=== PATIENT | female | born 1980 | race Caucasian/White ===

== ENCOUNTER 2018-12-31 12:01 | Inpatient (IN) | payer BC ==
[2018-12-31] MEDS ORDERED: Lactated Ringers 1000 ML Bag* 1,000 ML IV ONE (13:27)
[2018-12-31] MEDS ORDERED: Buffered Lidocaine 1% SYRIN* 1 ML/SYRINGE INTRADERM ONE (13:27)
[2018-12-31] MEDS ORDERED: Oxytocin in LR* 20 UNITS/1,000 ML BAG IVPB SCH ×2 (14:00→23:00)
[2018-12-31] MEDS ORDERED: Lactated Ringers 1000 ML Bag* 1,000 ML IV SCH ×2 (14:00→23:00)
[2018-12-31 15:25] LABS: ABS Lymphocytes 2.1 10^3/ul (1.0-4.8); ABS Monocytes 0.4 10^3/ul (0-0.8); ABS Neutrophils 4.7 10^3/ul (1.5-7.7); Eosinophil % 0.3 %; Hematocrit 33 % (35-47); Hemoglobin 11.2 g/dL (12.0-16.0); Lymphocyte % 28.7 %; Mean Corpuscular HGB Conc 35 g/dL (31-36); Mean Corpuscular Hemoglobin 35 pg (27-31); Mean Corpuscular Volume 102 fL (80-97); Mean Platelet Volume 11.2 fL (7.4-10.4); Nucleated Red Blood Cells % 0.1; Platelet Count 88 10^3/uL (150-450); Red Blood Count 3.21 10^6 /uL (3.70-4.87); Red Cell Distribution Width 13 % (10-15); White Blood Count 7.2 10^3/uL (3.5-10.8)
[2018-12-31 15:44] LABS: Urine Benzodiazepine Screen None Detected (None Detect); Urine Opiates Screen None Detected (None Detect)
--- NOTE | 2018-12-31 18:02 | HP ---
General Information - Reason for Visit Pt presents for elective labor induction, . Uncomplicated except AMA and low Plt. - General Information Maternal Age: 38 Grav: 3 Para: 2 SAB: 0 IEA: 0 Estimated Due Date: 01/07/19 Determined By: LMP Gestational Age in Weeks/Days: 39+0 Maternal Blood Type and Rh: A Positive - Results this Serology/RPR Result: Non-Reactive Rubella Result: Immune HBsAg Result: Negative HIV Result: Negative GBS Culture Result: Negative Past Medical History Delivery History: Hx Uncomplicated Vaginal Delivery Pertinent Past Medical History: See Records - none Pertinent Past Surgical History: See Records - Antepartal Records Antepartal Records: Reviewed, Uncomplicated Review of Systems Constitutional: Comfortable CV Complaint: No Respiratory: Shortness of Breath: No Gastrointestinal: No Nausea/Vomiting Genitourinary: No Dysuria, No Bleeding, No Leaking Fluid Musculoskeletal: No Complaint Neurological: No Headache Movement: Normal Exam Allergies/Adverse Reactions: Allergies No Known Allergies Allergy (Verified 12/31/18 16:39) VS normal, afebrile Lab Values - Entire Visit: Laboratory Tests 12/31/18 12/31/18 12/31/18 14:00 14:00 14:00 WBC 7.2 RBC 3.21 L Hgb 11.2 L Hct 33 L MCV 102 H MCH 35 H MCHC 35 RDW 13 Plt Count 88 L MPV 11.2 H Neut % (Auto) 65.8 Lymph % (Auto) 28.7 [place] % (Auto) 4.9 Eos % (Auto) 0.3 Baso % (Auto) 0.3 Absolute Neuts (auto) 4.7 Absolute Lymphs (auto) 2.1 Absolute Monos (auto) 0.4 Absolute Eos (auto) 0.0 Absolute Basos (auto) 0.0 Absolute Nucleated RBC 0.0 Nucleated RBC % 0.1 Urine Opiates Screen None detected Ur Barbiturates Screen None detected Ur Phencyclidine Scrn None detected Ur Amphetamines Screen None detected U Benzodiazepines Scrn None detected Urine Cocaine Screen None detected U Cannabinoids Screen None detected Blood Type A Positive Antibody Screen Negative - Measurements Height: 5 ft 3 in Weight: 158 lb Weight in lbs: 158.075167 Body Mass Index (BMI): 28.0 Pre- Weight: 132 lb Weight Gained This : 26 lbs and 0 ozs - Exam Breast: Breast Exam Deferred CVA: No CVA Tenderness Heart: Normal Rhythm/Heart Sounds HEENT: No Significant Findings Lungs: Clear Bilaterally Rectal: Rectal Exam Deferred - Abdominal Exam Abdomen Exam: Non-Tender, Fundal Height Consistent with Dates - Ultrasound/Biophysical Profile Ultrasound Status: Not Done Targeted Exam Findings Estimated Weight: 7lb 8oz Cervical Exam: 3cm Effacement: 80% Station: -2 Presenting Part: Vertex Membrane Status: Intact Bleeding/Discharge: None EFM Findings - External Monitor Findings Baseline Heart Rate: 140 External Monitor Findings: Accelerations Present, No Pattern of Variable or Late Decelerations, Variability Moderate, Baseline Stable Contractions: Irregular Assessment/Plan - Assessment 39 wks here for IOL, very reassuring FHT. Pitocin and IV ordered, routine labs. Will check Plt. - Plan Plan: Induction, Admit - Anticipate Vaginal Delivery - Date/Time of Admission Date of Admission: 12/31/18 Time of Admission: 13:00
[2018-12-31] MEDS ORDERED: Witch Hazel PAD* JAR TOPICAL PRN (22:55)
[2018-12-31] MEDS ORDERED: Ibuprofen TAB* 600 MG PO PRN (22:55)
[2018-12-31] MEDS ORDERED: Acetaminophen TAB* 325 MG PO PRN (22:55)
[2018-12-31] MEDS ORDERED: Dibucaine 1% 28.35 GM TUBE PR PRN (22:55)
--- NOTE | 2018-12-31 23:06 | PROCNOTE ---
[facility] OB: Delivery Note - Delivery A Date of : 12/31/18 Time of : 22:24 Sex: Female Weight at : 7 lb 9 oz Score 1 Minute: 7 Score 5 Minutes: 9 Gestational Age in Weeks and Days at Delivery: 39 Weeks and 0 Days Delivery Method: Spontaneous Vaginal Labor: Induced Did Patient attempt ?: N/A, No Previous Amniotic Fluid: Clear Estimated Blood Loss: 200 Anesthesia/Analgesia: None Delivered By: Chito Chan - Nursery Level of Nursery: Regular/Bedside - Perineum Perineal Injury: 1st Degree Perineal Repair: By Delivering Practioner - Events Delivery Events of Note: Internal Scalp EKG - Additional Delivery Notes Additional Delivery Notes: Pt induced with pitocin and then AROM with large amt of clear fluid. Had slow progression to 6cm, then rapidly progressed to C/C/+2. Pt pushed for about 10 min to deliver the head in a controlled fashion. Nuchal cord x1 reduced after delivery. Shoulders and body delivered without difficulty. Cord doubly clamped and cut by father. IV pitocin increased. Intact placenta delivered spontaneously. 1st degree perineal lac repaired with 3-0 and 4-0 Vicryl Rapide.
[2019-01-01] MEDS ORDERED: Lidocaine 1% INJ* 10 MG/ML 30 ML SDV ONE (01:25)
[2019-01-01 06:02] LABS: ABS Lymphocytes 1.8 10^3/ul (1.0-4.8); ABS Monocytes 0.6 10^3/ul (0-0.8); ABS Neutrophils 8.6 10^3/ul (1.5-7.7); Hematocrit 30 % (35-47); Hemoglobin 10.3 g/dL (12.0-16.0); Lymphocyte % 16.6 %; Mean Corpuscular HGB Conc 34 g/dL (31-36); Mean Corpuscular Hemoglobin 34 pg (27-31); Mean Corpuscular Volume 101 fL (80-97); Mean Platelet Volume 10.5 fL (7.4-10.4); Nucleated Red Blood Cells % 0.1; Platelet Count 94 10^3/uL (150-450); Red Blood Count 3.01 10^6 /uL (3.70-4.87); Red Cell Distribution Width 12 % (10-15); White Blood Count 11.1 10^3/uL (3.5-10.8)
[2019-01-01] MEDS ORDERED: Simethicone TAB* 80 MG TAB.CHEW PO SCH (08:30)
[2019-01-01] MEDS ORDERED: Ferrous Gluconate TAB* 324 MG TAB PO SCH (09:00)
[2019-01-01] MEDS: Docusate CAP* 100 MG PO SCH ×2 (12:18→13:53)
[2019-01-02 08:54] VITALS: BP 124/84
== END 2019-01-02 11:18 | disposition home or self-care (01) | DRG 560 ==
LOC: MCHOBOUT 12:01 → MCHOB 13:39
PROVIDERS: ADMIT Obstetrics & Gynecology; ATTEND Obstetrics & Gynecology
PROC: 10E0XZZ Delivery of Products of Conception, External Approach (ICD-10-PCS; principal; 2018-12-31)
PROC: 3E033VJ Introduction of Other Hormone into Peripheral Vein, Percutaneous Approach (ICD-10-PCS; 2018-12-31)
PROC: 10907ZC Drainage of Amniotic Fluid, Therapeutic from Products of Conception, Via Natural or Artificial Opening (ICD-10-PCS; 2018-12-31)
PROC: 0HQ9XZZ Repair Perineum Skin, External Approach (ICD-10-PCS; 2018-12-31)
DX: O99.12 Other diseases of the blood and blood-forming organs and certain disorders involving the immune mechanism complicating childbirth (principal); Z37.0 Single live birth; D69.6 Thrombocytopenia, unspecified; O70.0 First degree perineal laceration during delivery; O69.81X0 Labor and delivery complicated by cord around neck, without compression, not applicable or unspecified; Z3A.39 39 weeks gestation of pregnancy; Z98.84 Bariatric surgery status
CPT/HCPCS: 36415; 80307; 85025; 86850; 86900; 86901; A9270-GY

== ENCOUNTER 2019-03-19 19:24 | Emergency (ER) | payer BC, OTHER ==
--- OUTSIDE RECORDS SUMMARY | 2019-03-19 19:39 | XMS REPORT | Continuity of Care Document ---
:1980 External Reference #:[id number] Author Name Sunitha Cooper MD (transmitted by agent of provider Oliva Duran) [address] [place] [address] Care Team Providers Name Role Phone Sunitha Cooper M.D. - Family Medicine Care Team Information Teamcenter Consultant [phone] Problems Description No Information Available Social History Type Date Description Comments Sex Unknown Tobacco Use Start: Unknown Never Smoked Cigarettes Smoking Status Reviewed: 02/22/19 Never Smoked Cigarettes ETOH Use Rarely consumes alcohol Tobacco Use Start: Unknown Patient has never smoked Recreational Drug Use Never Used Drugs Exercise Type/Frequency Exercises rarely Allergies, Adverse Reactions, Alerts Description No Known Drug Allergies Medications Active Medications SIG Qnty Indications Ordering Date Provider Omeprazole 1 by mouth every 90caps Sunitha Cooper MD 40mg day Capsules DR Fast Acting B12 sublingual daily Unknown 2500mcg Tablets Sub Biotin Forte Unknown 3mg Tablets Multi Vitamin Daily 1 by mouth every Unknown day Tablets Iron 1 by mouth every Unknown 325(65Fe) mg day Tablets Calcium 600 2 by mouth every Unknown 600mg day Tablets Immunizations Description No Information Available Vital Signs Date Vital Result Comment 02/22/2019 1:02pm Height 62.5 inches 5'2.50" Weight 147.00 lb Heart Rate 93 /min BP Systolic Sitting 120 mmHg BP Diastolic Sitting 78 mmHg O2 % BldC Oximetry 98 % BMI (Body Mass Index) 26.5 kg/m2 Results Description No Information Available Procedures Description No Information Available Medical Devices Description No Information Available Encounters Description No Information Available Assessments Date Code Description Provider 02/22/2019 Z00.00 Encounter for general adult medical examination Sunitha Cooper MD without abnormal findings 02/22/2019 K21.9 Gastro-esophageal reflux disease without Sunitha Cooper MD esophagitis 02/22/2019 Z98.84 Bariatric surgery status Sunitha Cooper MD Plan of Treatment Future Appointment(s):02/24/2020 2:20 pm - [facility] Sunitha Cooper MDZ00.00 Encounter for general adult medical examination without abnormal findingsComments:You are up to date with cervical cancer screening. Please sign a release form so we can obtain yourrecords from your ObGynYour cholesterol profile and other labs are due, so please go for fasting blood draw and I will send you a letter with results within 2 weeks.Remember to wear sunscreen and see your dentist regularly.For optimum health, I recommend some form of regular exercise and integrating alot of plant-based foods into your daily diet.Follow up:Physical in 1 yearK21.9 Gastro-esophageal reflux disease without soujmqsgomtJ01.84 Bariatric surgery status Functional Status Description No Information Available Mental Status Description No Information Available Referrals Description No Information Available
--- OUTSIDE RECORDS SUMMARY | 2019-03-19 19:39 | XMS REPORT | Continuity of Care Document ---
:1980 External Reference #:[id number] Author Name Sunitha Cooper MD (transmitted by agent of provider Oliva Duran) [address] [place] [address] Care Team Providers Name Role Phone Sunitha Cooper M.D. - Family Medicine Care Team Information Restaurant Line Cook Problems Description No Information Available Social History [...] 2:20 pm - Sunith[facility] Cooper [facility] - Sunitha Cooper MDZ00.00 Encounter for [...] in 1 yearK21.9 Gastro-esophageal reflux disease without [id number] Bariatric surgery status Functional Status Description No Information Available Mental Status Description No Information Available Referrals Description No Information Available
--- NOTE | 2019-03-19 23:09 | ED ---
Neurological HPI - HPI Summary HPI Summary: The patient is a 39 y/o F presenting to [facility] accompanied by with a chief complaint of sudden onset right-sided facial numbness onset this afternoon although she woke up this morning without these symptoms. She reports that she is having difficulty closing the right eye secondary to the numbness, and she also has been experiencing pain in the right ear beginning yesterday. Currently, her symptoms are rated 6/10 in severity. It is noted that she recently had a baby 11 weeks ago. PMHx: GERD. Nonsmoker, no EtOH, no substance use. Medications reviewed. Allergies noted. - History of Current Complaint Chief Complaint: EDNeckComplaint Stated Complaint: NUMBNESS ON MY FACE PER PT Time Seen by Provider: 03/19/19 22:59 Hx Obtained From: Patient Onset/Duration: Sudden Onset, Still Present Timing: Sudden Onset Onset Severity: Mild Current Severity: Moderate Neurological Deficit Location: Facial - right-sided Pain Intensity: 6 Pain Scale Used: 0-10 Numeric Character: Numbness/Tingling - right facial Aggravating: Unknown Alleviating: Unknown Associated Signs and Symptoms: Positive: Numbness - right facial - Allergy/Home Medications Allergies/Adverse Reactions: Allergies Allergy/AdvReac Type Severity Reaction Status Date / Time No Known Allergies Allergy Verified 03/19/19 19:31 PMH/Surg Hx/FS Hx/Imm Hx Endocrine/Hematology History: Denies: Hx Diabetes Cardiovascular History: Denies: Hx Hypertension GI History: Reports: Hx Gastroesophageal Reflux Disease - Surgical History Surgical History: None Surgery Procedure, Year, and Place: none Infectious Disease History: No Infectious Disease History: Denies: Traveled Outside the [place] in Last 30 Days - Family History Known Family History: Negative: Cardiac Disease, Hypertension - Social History Alcohol Use: None Hx Substance Use: No Substance Use Type: Reports: None Hx Tobacco Use: No Smoking Status (MU): Never Smoked Tobacco Review of Systems Positive: Other - difficulty closing right eye Positive: Ear Ache - right Positive: Numbness - right side of face All Other Systems Reviewed And Are Negative: Yes Physical Exam - Summary Physical Exam Summary: Appearance: Well-appearing, Well-nourished, lying in bed comfortably Skin: Warm, dry, no obvious rash Eyes: sclera anicteric, no conjunctival pallor ENT: mucous membranes moist, pharynx appears normal Neck: Supple, nontender Respiratory: Clear to auscultation, no signs of respiratory distress Cardiovascular: Normal S1, S2. No murmurs. Normal distal pulses in tibial and radial bilaterally. Abdomen: Soft, nontender, normal active bowel sounds present Musculoskeletal: Normal, Strength/ROM Intact, Motor function in all 4 extremities is normal and symmetric. There is no rigidity or tremor noted. Neurological: A&Ox3, awake and alert, mentation is normal, speech is fluent and appropriate, moderate right-sided facial paresis including the forehead Psychiatric: affect is normal, does not appear anxious or depressed Triage Information Reviewed: Yes Vital Signs On Initial Exam: Initial Vitals Temp Pulse Resp BP Pulse Ox 98.8 F 81 20 142/106 99 03/19/19 19:29 03/19/19 19:29 03/19/19 19:29 03/19/19 19:29 03/19/19 19:29 Vital Signs Reviewed: Yes Diagnostics - Vital Signs Vital Signs Temp Pulse Resp BP Pulse Ox 03/19/19 19:29 98.8 F 81 20 142/106 99 - Laboratory Result Diagrams: 03/19/19 23:35 03/19/19 23:35 Lab Statement: Any lab studies that have been ordered have been reviewed, and results considered in the medical decision making process. Course/Dx - Course Course Of Treatment: Pt is a 39 y/o F with cc of sudden onset right-sided facial numbness beginning this afternoon accompanied by difficulty closing the right eye secondary to the decreased sensation. Upon physical exam, the pt exhibits a right-sided facial paresis including the forehead, c/w a peripheral lesion. Blood work reveals RBCs 3.68, MCV 98, MCH 33, plt count 131, MPV 11.1, and alkaline phosphatase 109, but results are otherwise normal. Lyme screening is ordered and will be followed up with pt. In the ED course, the pt is administered Prednisone to start the course. Plan for discharge is discussed with follow up with neuro as needed, and she is to continue the course of Prednisone as prescribed. She understands and agrees with plan for follow up with her PCP. - Diagnoses Provider Diagnoses: Aleman's palsy Discharge ED - Sign-Out/Discharge Documenting (check all that apply): Patient Departure - Patient will be discharged home. Patient Received Moderate/Deep Sedation with Procedure: No - Discharge Plan Condition: Stable Disposition: HOME Prescriptions: predniSONE TAB* [Deltasone 20 MG TAB*] 40 mg PO DAILY 7 Days #14 tab Patient Education Materials: Aleman Palsy (ED) Referrals: Deep Sims MD [Medical Doctor] - If Needed Sunitha Cooper MD [Primary Care Provider] - 1 Week - Billing Disposition and Condition Condition: STABLE Disposition: Home - Attestation Statements Document Initiated by Dieudonne: Yes Documenting Scribe: Chayo Coon Provider For Whom Dieudonne is Documenting (Include Credential): Dr. Osmin Sauceda MD Scribe Attestation: Chayo Aguilera scribed for Dr. Osmin Sauceda MD on 03/21/19 at 0455. Scribe Documentation Reviewed: Yes Provider Attestation: The documentation as recorded by the Chayo el accurately reflects the service I personally performed and the decisions made by me, Dr. Osmin Sauceda MD Status of Scribe Document: Viewed
[2019-03-19] MEDS ORDERED: predniSONE TAB* 20 MG PO ONE (23:10)
[2019-03-19 23:43] LABS: ABS Basophils 0.1 10^3/ul (0-0.2); ABS Eosinophils 0.1 10^3/ul (0-0.6); ABS Lymphocytes 2.5 10^3/ul (1.0-4.8); ABS Monocytes 0.4 10^3/ul (0-0.8); ABS Neutrophils 2.2 10^3/ul (1.5-7.7); Eosinophil % 2.3 %; Hematocrit 36 % (35-47); Hemoglobin 12.2 g/dL (12.0-16.0); Lymphocyte % 47.2 %; Mean Corpuscular HGB Conc 34 g/dL (31-36); Mean Corpuscular Hemoglobin 33 pg (27-31); Mean Corpuscular Volume 98 fL (80-97); Mean Platelet Volume 11.1 fL (7.4-10.4); Nucleated Red Blood Cells % 0.1; Platelet Count 131 10^3/uL (150-450); Red Blood Count 3.68 10^6 /uL (3.70-4.87); Red Cell Distribution Width 13 % (10-15); White Blood Count 5.4 10^3/uL (3.5-10.8)
[2019-03-19 23:57] LABS: Albumin 3.8 g/dL (3.2-5.2); Albumin/Globulin Ratio 1.4 (1-3); BUN/Creatinine Ratio 16.4 (8-20); Calcium 8.8 mg/dL (8.6-10.3); EGFR African American 133.5 (>60); EGFR Non-African American 110.4 (>60); Globulin 2.7 g/dL (2-4); Potassium 4.2 mmol/L (3.5-5.0); Total Bilirubin 0.4 mg/dL (0.2-1.0); Total Protein 6.5 g/dL (6.4-8.9)
[2019-03-19 23:58] VITALS: BP 146/103
== END 2019-03-19 23:53 | disposition home or self-care (01) ==
LOC: ED 19:24
DX: G51.0 Bell's palsy (principal); K21.9 Gastro-esophageal reflux disease without esophagitis; Z79.899 Other long term (current) drug therapy
CPT/HCPCS: 36415; 80053; 85025; 86618; 99282; J7512

== ENCOUNTER 2020-09-17 02:14 | Inpatient (IN) ==
[2020-09-17] MEDS ORDERED: Oxytocin in LR 20 UNITS/1,000 ML BAG IVPB ONE (02:47)
[2020-09-17 03:37] LABS: Hematocrit 34 % (35-47); Hemoglobin 11.6 g/dL (12.0-16.0); Mean Corpuscular HGB Conc 34 g/dL (31-36); Mean Corpuscular Hemoglobin 35 pg (27-31); Mean Corpuscular Volume 103 fL (80-97); Mean Platelet Volume 11.5 fL (7.4-10.4); Platelet Count 118 10^3/uL (150-450); Red Blood Count 3.34 10^6 /uL (3.70-4.87); Red Cell Distribution Width 13 % (10-15)
[2020-09-17] MEDS ORDERED: Lactated Ringers 1000 ml BAG 1,000 ML IV ONE (03:46)
[2020-09-17] MEDS ORDERED: Buffered Lidocaine 1% SYRIN 1 ml INTRADERM ONE (03:46)
[2020-09-17 03:55] LABS: Urine Benzodiazepine Screen None Detected (None Detect); Urine Opiates Screen None Detected (None Detect)
[2020-09-17] MEDS ORDERED: Lactated Ringers 1000 ml BAG 1,000 ML IV SCH ×2 (04:00→05:00)
[2020-09-17] MEDS ORDERED: Witch Hazel PAD JAR TOPICAL PRN (04:01)
[2020-09-17] MEDS ORDERED: Dibucaine 1% OINT 28.35 GM TUBE PR PRN (04:01)
[2020-09-17] MEDS ORDERED: Glycerin ADULT 2.4 gm SUPP PR PRN (04:01)
[2020-09-17] MEDS ORDERED: Oxytocin in LR 20 UNITS/1,000 ML BAG IVPB SCH (05:00)
[2020-09-17] MEDS ORDERED: Lidocaine 1% VIAL 10 MG/ML VIAL ONE (08:38)
[2020-09-18 06:44] LABS: ABS Basophils 0.1 10^3/ul (0-0.2); ABS Lymphocytes 3.6 10^3/ul (1.0-4.8); ABS Monocytes 0.6 10^3/ul (0-0.8); ABS Neutrophils 6.3 10^3/ul (1.5-7.7); Eosinophil % 0.3 %; Hematocrit 31 % (35-47); Hemoglobin 10.6 g/dL (12.0-16.0); Lymphocyte % 34.2 %; Mean Corpuscular HGB Conc 35 g/dL (31-36); Mean Corpuscular Hemoglobin 36 pg (27-31); Mean Corpuscular Volume 103 fL (80-97); Mean Platelet Volume 10.4 fL (7.4-10.4); Platelet Count 122 10^3/uL (150-450); Red Blood Count 2.97 10^6 /uL (3.70-4.87); Red Cell Distribution Width 13 % (10-15); White Blood Count 10.6 10^3/uL (3.5-10.8)
[2020-09-19 10:13] VITALS: BP 130/87
== END 2020-09-19 13:32 | disposition home or self-care (01) | DRG 560 ==
LOC: MCHOBOUT 02:14 → MCHOB 02:49
PROVIDERS: ADMIT Obstetrics & Gynecology; ATTEND Obstetrics & Gynecology

== ENCOUNTER 2020-12-27 08:28 | Observation (INO) ==
[2020-12-27] MEDS ORDERED: NS 0.9% 1000 ml BAG 2,000 ML IV ONE (08:56)
[2020-12-27] MEDS ORDERED: Ondansetron 4 mg VIAL 2 MG/ML 2 ml VIAL IV ONE (08:59)
[2020-12-27 09:28] LABS: ABS Lymphocytes 1.6 10^3/ul (1.0-4.8); ABS Monocytes 0.8 10^3/ul (0-0.8); ABS Neutrophils 13.2 10^3/ul (1.5-7.7); Hematocrit 37 % (35-47); Hemoglobin 12.6 g/dL (12.0-16.0); Lymphocyte % 10.3 %; Mean Corpuscular HGB Conc 34 g/dL (31-36); Mean Corpuscular Hemoglobin 34 pg (27-31); Mean Corpuscular Volume 100 fL (80-97); Mean Platelet Volume 10.3 fL (7.4-10.4); Platelet Count 169 10^3/uL (150-450); Red Blood Count 3.71 10^6 /uL (3.70-4.87); Red Cell Distribution Width 13 % (10-15); White Blood Count 15.6 10^3/uL (3.5-10.8)
[2020-12-27 09:57] LABS: Urine Appearance Cloudy; Urine Bilirubin Negative (Negative); Urine Blood Negative (Negative); Urine Color Amber; Urine Glucose Negative (Negative); Urine Ketones 1+ (Negative); Urine Nitrite Negative (Negative); Urine Protein 1+(30 mg/dL) (Negative); Urine Specific Gravity 1.021 (1.002-1.030); Urine Urobilinogen Negative (Negative)
[2020-12-27 09:58] LABS: ALT 42 U/L (7-52); Albumin 3.2 g/dL (3.2-5.2); Albumin/Globulin Ratio 1.1 (1-3); Alkaline Phosphatase 192 U/L (35-149); Blood Urea Nitrogen 8 mg/dL (6-24); CO2 Carbon Dioxide 25 mmol/L (22-32); Calcium 8.2 mg/dL (8.6-10.3); Chloride 103 mmol/L (101-111); EGFR Non-African American 114.1 (>60); Globulin 2.8 g/dL (2-4); Glucose 96 mg/dL (70-100); Lipase < 10 U/L (11.0-82.0); Magnesium 1.6 mg/dL (1.9-2.7); Sodium 137 mmol/L (135-145)
[2020-12-27 09:59] LABS: Urine Bacteria Absent (Absent); Urine Red Blood Cell Absent (Absent); Urine Renal Epithelial Cells Present (Absent); Urine Squamous Epithelial Cell Present (Absent); Urine White Blood Cell 3+(>20/hpf) (Absent)
[2020-12-27 10:03] LABS: HCG Pregnancy 0.64 mIU/mL
[2020-12-27] MEDS ORDERED: Iohexol 300 (CONTRAST) 10 ML SDV IV ONE (10:14)
[2020-12-27 11:08] LABS: Anion Gap 9 mmol/L (2-11)
[2020-12-27 12:12] LABS: Potassium Redraw 3.1 mmol/L (3.5-5.0)
[2020-12-27] MEDS ORDERED: Piperacillin/Tazobac ADVAN 3.375 GM in NS 0.9% 100 ml BAG 100 ML IV ONE (15:19)
[2020-12-27] MEDS ORDERED: Succinylcholine 200 mg VIAL 20 mg/ml 10 ml VIAL (200 mg) ONE (17:11)
[2020-12-27] MEDS ORDERED: Propofol 10 MG/ML 20 ML BTL ONE (17:11)
[2020-12-27] MEDS ORDERED: Lidocaine 2% PF 5 ML VIAL ONE (17:13)
[2020-12-27] MEDS ORDERED: Rocuronium 50 mg VIAL 10 mg/ml 5 ml VIAL (50 mg) ONE (17:15)
[2020-12-27] MEDS ORDERED: Bupivacaine 0.25% EPI 200,000 30 ML SDV ONE (17:17)
[2020-12-27] MEDS ORDERED: Midazolam 2 mg/2 ml VIAL 1 mg/ml 2 ml VIAL (2 mg) ONE (17:38)
[2020-12-27] MEDS ORDERED: fentaNYL 100 mcg/2 ml 50 MCG/ML VIAL ONE ×2 (17:47→21:02)
[2020-12-27] MEDS ORDERED: Dexamethasone IV 4 MG/ML VIAL 1 ml VIAL ONE (18:07)
[2020-12-27] MEDS ORDERED: Ondansetron 4 mg VIAL 2 MG/ML 2 ml VIAL ONE (18:07)
[2020-12-27] MEDS ORDERED: Methylene Blue 0.5 % 50 MG/10 ML AMP IV ONE ×2 (18:38→18:43)
[2020-12-27] MEDS ORDERED: Acetaminophen IV 1 GM/100ML 100 ML IV ONE (20:02)
[2020-12-27] MEDS ORDERED: Ondansetron 4 mg VIAL 2 MG/ML 2 ml VIAL IV PRN (20:47)
[2020-12-27] MEDS ORDERED: D5W 1/2 NS 40 Meq KCL 1000 ml 1,000 ML IV SCH (21:00)
[2020-12-27] MEDS ORDERED: Haloperidol 5 mg/ml SDV IV/IM 5 MG/ML AMP ONE (21:02)
[2020-12-27] MEDS: fentaNYL 100 mcg/2 ml 50 MCG/ML VIAL IV SLOW PU PRN ×2 (21:04→21:21)
[2020-12-27] MEDS ORDERED: HYDROmorphone 0.5 MG/0.5 ML SYRINGE IV SLOW PU PRN (21:09)
[2020-12-27] MEDS ORDERED: Metoclopramide 5 MG/ML VIAL (10 mg) IV PRN (21:10)
[2020-12-27] MEDS ORDERED: Haloperidol 5 mg/ml SDV IV/IM 5 MG/ML AMP IV SLOW PU ONE (22:00)
[2020-12-27] MEDS: Piperacillin/Tazobactam VIAL 3.375 GM in NS 0.9% 100 ml BAG 100 ML IVPB SCH (23:24)
[2020-12-27] MEDS ORDERED: Zosyn per Pharmacy NOTE FOLLOW UP PRN (23:35)
[2020-12-28] MEDS: Piperacillin/Tazobactam VIAL 3.375 GM in NS 0.9% 100 ml BAG 100 ML IVPB SCH (06:03)
[2020-12-28 07:34] VITALS: BP 118/82
== END 2020-12-28 10:30 | disposition home or self-care (01) ==
LOC: ED 08:28 → SSU 08:28 → ED 16:56
PROVIDERS: ADMIT Surgery; ATTEND Surgery